=== PATIENT | female | born 1955 | race Caucasian/White ===

== ENCOUNTER 2017-05-21 01:30 | Observation (INO) | payer OTHER ==
--- NOTE | 2017-05-21 01:32 | PDOC ---
History of Present Illness - General Chief Complaint: Pain, Acute Stated Complaint: ABDOMINAL PAIN Time Seen by Provider: 05/21/17 01:32 - History of Present Illness Initial Comments: 05/21/17 02:07 This 62-year-old woman with a history of breast carcinoma/TRAM flap reconstruction/ SBO/ anxiety/hyperlipidemia presents with a few hour history of generalized abdominal pain and nausea. Patient had dinner at approximately 8 PM (high-fiber foods including lentils) tonight. At approximately 11:30 PM, she began to experience generalized abdominal pain along with nausea and tenesmus. Patient was unable to have bowel movement but has been passing gas ( most recently half hour prior to presentation). There has been no vomiting. Patient states that she may have had brief episode of chest discomfort at the start of symptoms but no further chest pain/shortness of breath. Patient is currently training for a marathon and ran her usual course during the day today. She thinks she may not have hydrated herself adequately afterwards. 4 years ago patient was admitted here with similar symptoms as tonight: CT at that time showed small bowel obstruction. SBO resolved spontaneously after admission. There have been no subsequent episodes of persistent abdominal pain/ nausea/vomiting No history of hypertension/DM/family history of coronary artery disease No smoking for the last 35 years Past History - Past Medical History Allergies/Adverse Reactions: Allergies Allergy/AdvReac Type Severity Reaction Status Date / Time No Known Allergies Allergy Verified 03/06/13 20:21 Home Medications: Ambulatory Orders Clonazepam [KlonoPIN -] 1 mg PO HS 03/07/13 Lovastatin 20 mg PO DAILY 03/07/13 Venlafaxine HCl [Effexor -] 75 mg PO DAILY 03/07/13 Hypercholesterolemia: Yes - Psycho/Social/Smoking Cessation Hx Anxiety: No Suicidal Ideation: No Smoking Status: No Smoking History: Never smoked Number of Cigarettes Smoked Daily: 0 Hx Alcohol Use: No Drug/Substance Use Hx: No Substance Use Type: Alcohol Hx Substance Use Treatment: No Review of Systems - Review of Systems Able to Perform ROS?: Yes Comments:: 12 point review of systems is negative except for what is noted in the history of present illness *Physical Exam - Physical Exam Comments: GENERAL: Adult female, in moderate distress secondary to nausea and abdominal pain HEAD: Normal with no signs of trauma. EYES: PERRLA, EOMI, sclera anicteric, conjunctiva clear. ENT: Ears normal, nares patent, oropharynx clear without exudates. Dry mucous membranes. NECK: Normal range of motion, supple without lymphadenopathy, JVD, or masses. LUNGS: Breath sounds equal, clear to auscultation bilaterally. No wheezes, and no crackles. HEART:Regular rate and rhythm, normal S1 and S2 without murmur, rub or gallop. ABDOMEN:. Moderately distended, hyperactive bowel sounds, generalized mild tenderness without peritoneal signs No organomegaly EXTREMITIES: Normal range of motion, no edema. No clubbing or cyanosis. No erythema, or tenderness. NEUROLOGICAL: Cranial nerves II through XII grossly intact. Normal speech. No focal neurological deficits. MUSCULOSKELETAL: Back non-tender to palpation, no CVA tenderness SKIN: Warm, Dry, normal turgor, no rashes or lesions noted. ED Treatment Course - LABORATORY CBC & Chemistry Diagram: 05/22/17 06:00 05/22/17 06:00 Medical Decision Making - Medical Decision Making This 62-year-old woman with a history of breast carcinoma/tram flap and one previous history of SBO presents with a few hour history of abdominal distention /pain/nausea. Of note, patient had high fiber diet today and exercised extensively in hot/humid conditions. Exam as noted. Patient given IV normal saline along with 4 mg Zofran IV. Toradol 30 mg IV given for analgesia. CBC/chemistry profile/lipase/lactic acid sent Noncontrast abdominal/pelvic CT performed to evaluate for evidence of small bowel obstruction Patient continued to have pain and asked for additional pain medication of Toradol IV. Patient given 2 mg of morphine IV After dose of morphine IV, patient became comfortable and no further nausea occurred. 05/21/17 06:14 Preliminary interpretation of abdominal/pelvic CT by Imaging commercial subcontractor: Small bowel dilatation in the left middle and lower abdomen suggesting obstruction . No abscess/free air/free fluid seen. Case discussed with radiologist (Dr. Diehl ); results consistent with early or partial small bowel obstruction Results discussed with the patient. She agrees to plan of admission for observation and treatment of her early small bowel obstruction. 05/21/17 06:55 12-lead electrocardiogram shows normal sinus rhythm at 87 bpm; intervals, wave forms and axis are all normal. No evidence of acute ST or T-wave abnormalities Patient to be admitted to [facility] hospitalist service for evaluation and observation of early small bowel obstruction. *DC/Admit/Observation/Transfer Diagnosis at time of Disposition: Small bowel obstruction - Discharge Dispostion Disposition: HOME Condition at time of disposition: Stable Admit: Yes - Referrals
[2017-05-21 01:40] VITALS: BMI 22.6
[2017-05-21] MEDS ORDERED: ONDANSETRON 4 MG/2 ML VIAL IVPUSH ONE (02:06)
[2017-05-21] MEDS ORDERED: SODIUM CHLORIDE 1,000 ML IV STA ×2 (02:06→05:05)
[2017-05-21] MEDS ORDERED: ONDANSETRON 4 MG/2 ML VIAL ONE (02:14)
[2017-05-21] MEDS ORDERED: KETOROLAC TROMETHAMINE 30 MG/1 ML VIAL ONE ×2 (02:16→14:15)
[2017-05-21] MEDS ORDERED: KETOROLAC TROMETHAMINE 30 MG/1 ML VIAL IVPUSH ONE ×3 (02:16→16:03)
[2017-05-21] MEDS ORDERED: morphine CARPU-JECT 2 MG/1 ML DISP.SYRIN IVPUSH ONE (02:24)
[2017-05-21] MEDS ORDERED: morphine CARPU-JECT 2 MG/1 ML DISP.SYRIN ONE (02:26)
[2017-05-21 02:38] LABS: BASOPHIL 1.2 % (0-2.0); EOSINOPHIL 1.5 % (0-4.5); MCH 31.6 pg (25.7-33.7); MCHC 34.4 g/dl (32.0-36.0); MEAN PLT VOLUME 10.5 fl (7.5-11.1); PLATELET COUNT 208 K/MM3 (134-434)
[2017-05-21 03:09] LABS: ALBUMIN 4.2 g/dl (3.4-5.0); ALK PHOS 34 U/L (45-117); ANION GAP 6 (8-16); BILIRUBIN,TOTAL 0.4 mg/dL (0.2-1.0); CALCIUM 9.4 mg/dL (8.5-10.1); CO2 32 mmol/L (21-32); CREATININE 0.8 mg/dL (0.55-1.02); GLUCOSE,RANDOM 105 mg/dL (74-106); SGOT/AST 23 U/L (15-37); SGPT/ALT 31 U/L (12-78); TOT PROT 7.4 g/dl (6.4-8.2)
[2017-05-21 03:10] LABS: CPK 78 IU/L (26-192); TROPONIN I < 0.02 ng/ml (0.00-0.05)
[2017-05-21] MEDS ORDERED: LORazepam 2 MG/ML SDV VIAL IVPUSH ONE (11:47)
--- NOTE | 2017-05-21 11:50 | HP ---
CHIEF COMPLAINT: diffuse abdominal pain PCP: Skip HISTORY OF PRESENT ILLNESS: This is a 62yo woman with PMH anxiety, breast CA s/ p transflap repair in 2004, hld and partial SBO in 2013 who presents today with sudden onset diffuse abdominal pain starting at approximately 2330 on 05/20/17. She states she was in her [place] including long run yesterday afternoon and she ate a large salad with lentils and cod for dinner. ER course was notable for: (1) CTAP- Dilated loops of small bowel Recent Travel: denies PAST MEDICAL HISTORY: see HPI PAST SURGICAL HISTORY: see HPI Social History: Smoking: denies Alcohol: denies Drugs: THC Allergies No Known Allergies Allergy (Verified 03/06/13 20:21) HOME MEDICATIONS: Home Medications Medication Instructions Recorded Clonazepam [KlonoPIN] 1 mg PO HS 03/07/13 Lovastatin 20 mg PO DAILY 03/07/13 Venlafaxine HCl [Effexor] 75 mg PO DAILY 03/07/13 REVIEW OF SYSTEMS CONSTITUTIONAL: Absent: fever, chills, diaphoresis, generalized weakness, malaise, loss of appetite, weight change HEENT: Absent: rhinorrhea, nasal congestion, throat pain, throat swelling, difficulty swallowing, mouth swelling, ear pain, eye pain, visual changes CARDIOVASCULAR: Absent: chest pain, syncope, palpitations, irregular heart rate, lightheadedness , peripheral edema RESPIRATORY: Absent: cough, shortness of breath, dyspnea with exertion, orthopnea, wheezing, stridor, hemoptysis GASTROINTESTINAL: Present- abdominal pain, abdominal distension Absent: nausea, vomiting, diarrhea, constipation, melena, hematochezia GENITOURINARY: Absent: dysuria, frequency, urgency, hesitancy, hematuria, flank pain, genital pain MUSCULOSKELETAL: Absent: myalgia, arthralgia, joint swelling, back pain, neck pain SKIN: Absent: rash, itching, pallor HEMATOLOGIC/IMMUNOLOGIC: Absent: easy bleeding, easy bruising, lymphadenopathy, frequent infections ENDOCRINE: Absent: unexplained weight gain, unexplained weight loss, heat intolerance, cold intolerance NEUROLOGIC: Absent: headache, focal weakness or paresthesias, dizziness, unsteady gait, seizure, mental status changes, bladder or bowel incontinence PSYCHIATRIC: Absent: anxiety, depression, suicidal or homicidal ideation, hallucinations. PHYSICAL EXAMINATION Vital Signs - 24 hr 08/19/17 08:24 Temperature 98.6 F Pulse Rate 86 Respiratory 16 Rate Blood Pressure 140/86 O2 Sat by Pulse 100 Oximetry (%) GENERAL: Awake, alert, and fully oriented, in no acute distress. HEAD: Normal with no signs of trauma. EYES: Pupils equal, round and reactive to light, EOM intact, sclera anicteric, conjunctiva clear. No lid lag. EARS, NOSE, THROAT: Ears normal, nares patent, oropharynx clear without exudates. Moist mucous membranes. NECK: Normal range of motion, supple without lymphadenopathy, JVD, or masses. LUNGS: Breath sounds equal, clear to auscultation bilaterally. No wheezes, and no crackles. No accessory muscle use. HEART: Regular rate and rhythm, normal S1 and S2 without murmur, rub or gallop. ABDOMEN: Soft with normoactive bowel sounds. Dullness to percussion in RUQ. TTP in lower abdomen. Mildly distended in lower abdomen, no guarding, no rebound, no masses. No hepatomegaly or splenomegaly. Passing flatus at this time. MUSCULOSKELETAL: Normal range of motion at all joints. No bony deformities or tenderness. No CVA tenderness. UPPER EXTREMITIES: 2+ pulses, warm, well-perfused. No cyanosis. No clubbing. No peripheral edema. LOWER EXTREMITIES: 2+ pulses, warm, well-perfused. No calf tenderness. No peripheral edema. NEUROLOGICAL: Cranial nerves II-XII intact. Normal speech. Normal gait. PSYCHIATRIC: Anxious. SKIN: Warm, dry, normal turgor, no rashes or lesions noted, normal capillary refill. ASSESSMENT/PLAN: A: 62yo woman with PMH breast CA (2003) with b/l transflap mastectomy, hld and partial SBO (2012) with partial SBO now. P: 1. SBO - serial abdominal exams - NS@125 - trend electrolytes - will avoid opiates for pain management - Toradol 30mg IVP prn - re-evaluation in AM - trend CMP - low threshold for surgery evaluation 2. Anxiety - ativan 2mg prn 3. F/E/N - NPO - NS@125 - replete prn 4. PPX - sqh - OOB Dispo- requires observation for her acute medical condition Visit type - Emergency Visit Emergency Visit: Yes ED Registration Date: 05/21/17 Care time: The patient presented to the Emergency Department on the above date and was hospitalized for further evaluation of their emergent condition. - New Patient This patient is new to me today: Yes Date on this admission: 05/21/17 - Critical Care Critical Care patient: No
[2017-05-21] MEDS: SODIUM CHLORIDE 1,000 ML IV SCH (12:16)
[2017-05-21] MEDS ORDERED: LORazepam 2 MG/ML SDV VIAL ONE (14:15)
[2017-05-21] MEDS ORDERED: LORazepam 2 MG/ML SDV VIAL IVPUSH PRN (16:06)
[2017-05-22 08:39] LABS: BASOPHIL 0.7 % (0-2.0); EOSINOPHIL 3.4 % (0-4.5); MCH 31.3 pg (25.7-33.7); MCHC 34.5 g/dl (32.0-36.0); MEAN CELL VOLUME 90.7 fl (80-96); MEAN PLT VOLUME 10.6 fl (7.5-11.1); NEUTROPHILS 63.8 % (42.8-82.8); PLATELET COUNT 145 K/MM3 (134-434); RDW 12.5 % (11.6-15.6); WHITE BLOOD COUNT 6.1 K/mm3 (4.0-10.8)
[2017-05-22 08:56] LABS: ALBUMIN 3.3 g/dl (3.5-5.0); ALK PHOS 27 U/L (32-92); ANION GAP 4 (8-16); BILIRUBIN,TOTAL 1.1 mg/dl (0.2-1.0); CO2 25 mmol/L (22-28); GLUCOSE,RANDOM 93 mg/dl (74-106); SGOT/AST 21 U/L (10-42); SGPT/ALT 17 U/L (10-40); TOT PROT 5.3 g/dl (6.4-8.3)
[2017-05-22 09:14] LABS: CREATININE 0.5 mg/dl (0.6-1.3)
[2017-05-22] MEDS ORDERED: POLYETHYLENE GLYCOL 3350 119 GM BTL PO ONE (09:30)
[2017-05-22] MEDS ORDERED: ATORVASTATIN CA 10 MG TABLET (FP) PO SCH (10:00)
[2017-05-22] MEDS ORDERED: VENLAFAXINE HCL 75 MG TABLET PO SCH (10:00)
--- NOTE | 2017-05-22 11:38 | DS ---
Physical Exam: SUBJECTIVE: Patient seen and examined at bedside. Feels better. Small firm BM this AM. OBJECTIVE: Vital Signs Period Temp Pulse Resp BP Sys/Escudero Pulse Ox Last 24 Hr 98.5 F-98.9 F 64-89 18-18 98-119/54-80 98-100 PHYSICAL EXAM GENERAL: Awake, alert, and fully oriented, in no acute distress. LUNGS: Breath sounds equal, clear to auscultation bilaterally. No wheezes, and no crackles. No accessory muscle use. HEART: Regular rate and rhythm, normal S1 and S2 without murmur, rub or gallop. ABDOMEN: Soft non-tender, non-distended with normoactive bowel sounds. No guarding, no rebound, no masses. No hepatomegaly or splenomegaly. Passing flatus and stool at this time. NEUROLOGICAL: Cranial nerves II-XII intact. Normal speech. Normal gait. PSYCHIATRIC: Calm and cooperative. SKIN: Warm, dry, normal turgor, no rashes or lesions noted, normal capillary refill. LABS Laboratory Results - last 24 hr 05/22/17 05/22/17 06:00 06:00 WBC 6.1 RBC 3.81 Hgb 11.9 Hct 34.5 MCV 90.7 MCH 31.3 MCHC 34.5 RDW 12.5 Plt Count 145 MPV 10.6 Neutrophils % 63.8 Lymphocytes % 24.3 D Monocytes % 7.8 Eosinophils % 3.4 D Basophils % 0.7 Sodium 139 Potassium 3.8 Chloride 110 H Carbon Dioxide 25 Anion Gap 4 L BUN 8 Creatinine 0.5 L Creat Clearance w eGFR > 60 Random Glucose 93 D Calcium 8.0 L Total Bilirubin 1.1 H D AST 21 ALT 17 D Alkaline Phosphatase 27 L Total Protein 5.3 L Albumin 3.3 L HOSPITAL COURSE: Date of Admission:05/21/17 Date of Discharge: 05/22/17 Minutes to complete discharge: 30 Discharge Summary Reason For Visit: SMALL BOWEL OBSTRUCTION Current Active Problems Small bowel obstruction (Acute) Hospital Course: This is a 62yo woman with PMH of breast carcinoma/TRAM flap reconstruction/ SBO / anxiety/hyperlipidemia who presented with a few hour history of generalized abdominal pain and nausea. Patient had dinner at approximately 8 PM (high- fiber foods including lentils) 05/20. At approximately 11:30 PM, she began to experience generalized abdominal pain along with nausea and tenesmus. Patient was unable to have bowel movement but has been passing gas (most recently half hour prior to presentation). There has been no vomiting. Patient is currently training for a marathon and ran her usual course during the day of admission. She thinks she may not have hydrated herself adequately afterwards. 4 years ago patient was admitted here with similar symptoms: CT at that time showed small bowel obstruction. SBO resolved spontaneously after admission. There have been no subsequent episodes of persistent abdominal pain/nausea/ vomiting 1. SBO -CTAP showed possible partial SBO -IVF and bowel rest provided -repeat imaging showed resolution of obstruction with large stool in sigmoid colon -BM on day of discharge after Miralax -abdomen SNTND 2. Anxiety -controlled with Ativan 2mg Condition: Stable - Instructions Diet, Activity, Other Instructions: Drink plenty of fluids. Avoid lentils in the future. Eat a well balanced diet high in fiber. Follow up with your front desk coordinator within 2 weeks. Return to ER for worsening pain, rectal bleeding, vomiting or any other concerns. Referrals: STAFF,NOT ON [Primary Care Provider] - Disposition: HOME - Home Medications Comprehensive Discharge Medication List: Ambulatory Orders Clonazepam [KlonoPIN -] 1 mg PO HS 03/07/13 Lovastatin 20 mg PO DAILY 03/07/13 Venlafaxine HCl [Effexor -] 75 mg PO DAILY 03/07/13 Problem List - Problems (1) Small bowel obstruction Code(s): K56.69 - OTHER INTESTINAL OBSTRUCTION (2) Anxiety Code(s): F41.9 - ANXIETY DISORDER, UNSPECIFIED This patient is new to me today: No Emergency Visit: Yes ED Registration Date: 05/21/17 Care time: The patient presented to the Emergency Department on the above date and was hospitalized for further evaluation of their emergent condition. Critical Care patient: No - Discharge Referral Referred to [facility] No
[2017-05-22] MEDS: SODIUM CHLORIDE 1,000 ML IV SCH (12:08)
[2017-05-22 12:12] VITALS: BP 105/60; PULSE 70; TEMP 98.1
--- NOTE | 2017-05-24 14:16 | EKG ---
Test Reason : Blood Pressure : / mmHG Vent. Rate : 087 BPM Atrial Rate : 087 BPM P-R Int : 148 ms QRS Dur : 072 ms QT Int : 386 ms P-R-T Axes : 057 079 059 degrees QTc Int : 464 ms NORMAL SINUS RHYTHM LOW VOLTAGE QRS BORDERLINE ECG NO PREVIOUS ECGS AVAILABLE REPEAT EKG IF CLINICALLY INDICATED Confirmed by JAIME VALLEJO MD ([id number]) on 05/24/2017 2:15:37 PM Referred By: MD SANDOVAL Confirmed By:JAIME VALLEJO MD
== END 2017-05-22 12:50 | disposition home or self-care (01) ==
LOC: SUPCPDRO 01:30 → FER 01:30 → FM/S 08:00 → INTOOBSV 08:00 → FM/S 20:13
PROVIDERS: ADMIT Internal Medicine; ATTEND Nurse Practitioner Family
PROC: 3E0333Z Introduction of Anti-inflammatory into Peripheral Vein, Percutaneous Approach (ICD-10-PCS; principal; 2017-05-21)
PROC: 3E033GC Introduction of Other Therapeutic Substance into Peripheral Vein, Percutaneous Approach (ICD-10-PCS; 2017-05-21)
PROC: 3E033NZ Introduction of Analgesics, Hypnotics, Sedatives into Peripheral Vein, Percutaneous Approach (ICD-10-PCS; 2017-05-21)
PROC: 3E0337Z Introduction of Electrolytic and Water Balance Substance into Peripheral Vein, Percutaneous Approach (ICD-10-PCS; 2017-05-21)
DX: K56.69 Other intestinal obstruction (principal); F41.9 Anxiety disorder, unspecified; E78.5 Hyperlipidemia, unspecified; Z85.3 Personal history of malignant neoplasm of breast
CPT/HCPCS: 36415; 71010-TC; 74020-TC; 74176-TC; 80053; 83605; 83690; 84484; 85025; 93005; 99284-25; G0378

== ENCOUNTER 2019-03-26 20:12 | Emergency (ER) | payer OTHER ==
[2019-03-26 20:41] VITALS: BP 160/87; PULSE 66; TEMP 97.9; BMI 26.5
--- NOTE | 2019-03-26 21:26 | PDOC ---
Documentation entered by Rocio Hui SCRIBE, acting as scribe for Deyvi Candelario MD. Deyvi Candelario MD: This documentation has been prepared by the Korina garcia Brenda, SCRIBE, under my direction and personally reviewed by me in its entirety. I confirm that the documentation accurately reflects all work , treatment, procedures, and medical decision making performed by me. History of Present Illness - General Chief Complaint: Injury Stated Complaint: SLIP AND FALL Time Seen by Provider: 03/26/19 20:21 History Source: Patient Exam Limitations: No Limitations - History of Present Illness Initial Comments: 03/26/19 20:51 The patient is a 64 year old female, with a significant PMH of breast carcinoma , TRAM flap reconstruction, SBO, anxiety and hyperlipidemia who presents to the emergency department s/p fall. The patient reports being at [employer], at which time she tripped and fell on an unknown area, where she hit her head. The Patient notes having a bloody nose since the incident. She also reports feeling pain on bruise on her forehead and slight head pressure. The patient denies LOC. Denies chest pain, shortness of breath, headache and dizziness.Denies fever, chills, nausea, vomiting, diarrhea and constipation. Allergies: As per nursing notes Past medical history: As noted in HPI. Past surgical history: no significant history Social history: Pt lives with family. Family History: no pertinent history Medications: As reviewed General: No fevers or chills, no weakness, no weight loss HEENT: +Bloody nose. + Abrasion on forehead. + Abrasion on nose bridge. No change in vision. No sore throat,. No ear pain CardioVascular: No chest pain or shortness of breath Respiratory:No cough, or wheezing. Gastrointestinal: no nausea, vomiting, diarrhea or constipation, No rectal bleeding Genitourinary: No dysuria, hematuria, or frequency Musculoskeletal: No joint or muscle pain or swelling Neurologic: No headache, vertigo, dizziness or loss of consciousness Psychiatric: nor depression Skin: No rashes or easy bruising Endocrine: no increased thirst or abnormal weight change Allergic: no skin or latex allergy All other systems reviewed and normal GENERAL: The patient is awake, alert, and fully oriented, in no acute distress. HEAD: Normal with no signs of trauma. EYES: Pupils equal, round and reactive to light, extraocular movements intact, sclera anicteric, conjunctiva clear. NOSE: +Abrasion over bridge of nose +Swelling and questionable deformity to the nose . No septal hematoma. No active bleeding from the nose. EXTREMITIES: Normal range of motion, no edema. NEUROLOGICAL: No tenderness to palpation on cervical spine. Normal speech, normal gait. PSYCH: Normal mood, normal affect. SKIN: Warm, Dry, normal turgor, no rashes or lesions noted. 03/26/19 21:25 Assessment and plan: This is a 64-year-old female who comes in status post slip and fall at [employer]. Patient hit her nose but otherwise denies any injuries. Patient nose bled profusely as per patient but there was no bleeding here in the ED. Nasal bone x-ray small minimally displaced fracture of the distal portion of the nasal bone Head CT 03/26/19 21:54 Negative for any acute pathology Patient discharged home with her will follow-up with her primary care doctor Past History - Past Medical History Allergies/Adverse Reactions: Allergies Allergy/AdvReac Type Severity Reaction Status Date / Time No Known Allergies Allergy Verified 03/06/13 20:21 Home Medications: Ambulatory Orders Lovastatin 20 mg PO DAILY 03/07/13 Venlafaxine HCl [Effexor -] 75 mg PO DAILY 03/07/13 clonazePAM [KlonoPIN -] 1 mg PO HS 03/07/13 Cancer: Yes GI Disorders: Yes (SBO) Hypercholesterolemia: Yes Psychiatric Problems: Yes (ANXIETY) - Surgical History Abdominal Surgery: Yes - Suicide/Smoking/Psychosocial Hx Smoking Status: No Smoking History: Never smoked Have you smoked in the past 12 months: No Number of Cigarettes Smoked Daily: 0 Hx Alcohol Use: No Drug/Substance Use Hx: No Substance Use Type: Alcohol Hx Substance Use Treatment: No *Physical Exam - Vital Signs Last Vital Signs Temp Pulse Resp BP Pulse Ox 97.9 F 66 16 160/87 100 03/26/19 20:13 03/26/19 20:13 03/26/19 20:13 03/26/19 20:13 03/26/19 20:13 ED Treatment Course - RADIOLOGY Radiology Studies Ordered: Category Date Time Status HEAD CT WITHOUT CONTRAST [CT] Stat CT Scan 03/26/19 20:28 Taken NASAL BONES [RAD] Stat Radiology 03/26/19 20:28 Taken *DC/Admit/Observation/Transfer Diagnosis at time of Disposition: Nasal bone fracture, Nasal abrasion - Discharge Dispostion Disposition: HOME Condition at time of disposition: Stable Decision to Admit order: No - Referrals - Patient Instructions Additional Instructions: For the pain take Tylenol 1000 mg as often this 3-4 times a day if needed. Someone to check on you once tonight during the night. You should be arousable to you normal level of arousability for that time of the night. If you have been vomiting, had a seizure, or you are unable to be aroused or there is a change in your mental status call 911 go back to the nearest emergency department. Followup with your primary care doctor Return to the emergency department immediately with ANY new, persistent or worsening symptoms. Continue any medications as previously prescribed by your physician. You should follow up with your primary doctor as soon as possible regarding today's emergency department visit. . Please make sure your doctor reviews the results of your emergency evaluation. Thank you for coming to the Emergency Department today for your care. It was a pleasure to see you today. Please note that your evaluation is INCOMPLETE until you follow-up with your doctor. - Post Discharge Activity
== END 2019-03-26 23:14 | disposition home or self-care (01) ==
LOC: FER 20:12
DX: S02.2XXA Fracture of nasal bones, initial encounter for closed fracture (principal); S06.9X0A Unspecified intracranial injury without loss of consciousness, initial encounter; W18.39XA Other fall on same level, initial encounter; Y93.89 Activity, other specified; Y92.512 Supermarket, store or market as the place of occurrence of the external cause; S00.31XA Abrasion of nose, initial encounter; K56.609 Unspecified intestinal obstruction, unspecified as to partial versus complete obstruction; E78.00 Pure hypercholesterolemia, unspecified; F41.9 Anxiety disorder, unspecified; Z85.3 Personal history of malignant neoplasm of breast
CPT/HCPCS: 70160-TC-FY; 70450-TC; 99281-25

== ENCOUNTER 2021-09-27 13:15 | Emergency (ER) | payer OTHER ==
[2021-09-27 13:53] VITALS: BP 147/86; PULSE 93; TEMP 98.9; BMI 23.0
[2021-09-29 00:07] LABS: SARS-CoV-2 NAA Not Detected (Not Detected)
== END 2021-09-27 14:04 | disposition home or self-care (01) ==
LOC: FER 13:15
DX: B34.9 Viral infection, unspecified (principal)
CPT/HCPCS: 99283-25; C9803; U0003; U0005

== ENCOUNTER 2022-07-20 20:25 | Emergency (ER) | payer OTHER ==
[2022-07-20 20:49] VITALS: BP 175/95; PULSE 74; RESP 16; TEMP 98.8; BMI 23.6
== END 2022-07-20 22:16 | disposition home or self-care (01) ==
LOC: FER 20:25
DX: S00.03XA Contusion of scalp, initial encounter (principal); W01.0XXA Fall on same level from slipping, tripping and stumbling without subsequent striking against object, initial encounter
CPT/HCPCS: 70450-TC; 99284-25

== ENCOUNTER 2022-10-06 10:33 | Day surgery (SDC) | payer OTHER ==
[2022-09-28 09:56] VITALS: BMI 23.0
[2022-10-06] MEDS ORDERED: NEO/POLYMYX B SULF/DEXAMETH OPHTHALMIC 5ML BOTTLE ONE (11:26)
[2022-10-06] MEDS ORDERED: BSS (NA/CA/MG/K) BALANCED SALT SOLUTION OPHTH SOLN 15 ML BOTTLE ONE (11:26)
[2022-10-06] MEDS ORDERED: TRYPAN BLUE 0.5 ML DISP.SYRIN ONE (11:26)
[2022-10-06] MEDS ORDERED: CARBACHOL 0.01% INTRA-OCULAR 1.5 ML VIAL ONE (11:26)
[2022-10-06] MEDS ORDERED: PHENYLEPHRINE/KETOROLAC 4 ML VIAL IO ONE (11:26)
[2022-10-06] MEDS: PHENYLEPHRINE 2.5% OPHTH SOLN 15 ML BOTTLE ONE ×3 (11:45→11:55)
[2022-10-06] MEDS: CYCLOPENTOLATE 2% OPHTH SOLN 2 ML BOTTLE ONE ×3 (11:45→11:55)
[2022-10-06] MEDS: TROPICAMIDE 1% OPHTH SOLN 15 ML BOTTLE ONE ×3 (11:45→11:55)
[2022-10-06] MEDS: CIPROFLOXACIN 0.3% EYE DROPS 5 ML BOTTLE ONE ×3 (11:45→11:55)
[2022-10-06 11:50] VITALS: RESP 16
[2022-10-06] MEDS ORDERED: MIDAZOLAM HCL 2 MG/2 ML SINGLE DOSE VIAL ONE ×2 (12:51→13:02)
[2022-10-06 14:14] VITALS: TEMP 97.9
[2022-10-06 14:22] VITALS: BP 93/54; PULSE 76
== END 2022-10-06 14:15 | disposition home or self-care (01) ==
LOC: FASU 10:33
PROVIDERS: ATTEND Ophthalmology
PROC: 08RJ3JZ Replacement of Right Lens with Synthetic Substitute, Percutaneous Approach (ICD-10-PCS; principal; 2022-10-06 12:57)
DX: H26.8 Other specified cataract (principal)
CPT/HCPCS: 66984; V2632; J1097

== ENCOUNTER 2022-12-15 06:40 | Inpatient (IN) | payer OTHER ==
[2022-12-15] MEDS ORDERED: ONDANSETRON 4 MG/2 ML VIAL IVPUSH ONE (07:33)
[2022-12-15] MEDS ORDERED: SODIUM CHLORIDE 1,000 ML IV STA (07:33)
[2022-12-15] MEDS ORDERED: morphine CARPU-JECT 4 MG/1 ML DISP.SYRIN IVPUSH ONE ×2 (07:33→11:26)
[2022-12-15] MEDS ORDERED: morphine SULFATE 4 MG/ML VIAL ONE ×3 (07:34→15:04)
[2022-12-15] MEDS ORDERED: ONDANSETRON 4 MG/2 ML VIAL ONE (07:35)
[2022-12-15 07:59] LABS: INR 0.97 (0.83-1.09); PROTHROMBIN TIME (PATIENT) 11.1 SEC (9.7-13.0)
[2022-12-15 08:06] LABS: ALBUMIN 4.5 g/dl (3.4-5.0); BILIRUBIN,TOTAL 0.7 mg/dl (0.2-1); CALCIUM 10.1 mg/dl (8.5-10); CREATININE 0.8 mg/dl (0.55-1.3); TOT PROT 7.5 g/dl (6.4-8.2)
[2022-12-15 08:51] LABS: AMORP PHOS 2+ /hpf (NONE SEEN); EPITHELIAL CELLS FEW /hpf
[2022-12-15 08:57] LABS: BASO % 0.4 % (0-2.0); EOS % 0.1 % (0-4.5); HEMATOCRIT 42.3 % (32.4-45.2); HEMOGLOBIN 14.3 GM/dL (10.7-15.3); MCHC 33.8 g/dl (32.0-36.0); MEAN CELL VOLUME 91.7 fl (80-96); MEAN PLT VOLUME 10.7 fl (7.5-11.1); MONO % 4.9 % (3.8-10.2); NEUT % 83.6 % (42.8-82.8); PLATELET COUNT 203 10^3/uL (134-434); RBC 4.62 M/mm3 (3.60-5.2); RDW 13.5 % (11.6-15.6); WHITE BLOOD COUNT 10.5 K/mm3 (4.0-10.0)
[2022-12-15] MEDS ORDERED: LIDOCAINE VISCOUS 2% ORAL/TOP 15 ML UNIT-DOSE CUP MM ONE (13:33)
[2022-12-15] MEDS ORDERED: diazePAM CARPU-JECT 10 MG/2 ML DISP.SYRIN ONE (13:41)
[2022-12-15] MEDS ORDERED: diazePAM CARPU-JECT 10 MG/2 ML DISP.SYRIN IVPUSH ONE (13:44)
[2022-12-15] MEDS ORDERED: morphine CARPU-JECT 2 MG/1 ML DISP.SYRIN IVPUSH ONE (14:38)
[2022-12-15] MEDS ORDERED: LACTATED RINGERS SOLUTION 1,000 ML/1,000 ML INFUS.BAG IV SCH (18:15)
[2022-12-15 18:27] VITALS: BMI 23.9
[2022-12-15] MEDS: ACETAMINOPHEN 1000 MG/100 ML BAG IVPB PRN (18:53)
[2022-12-16] MEDS: ACETAMINOPHEN 1000 MG/100 ML BAG IVPB PRN ×3 (00:53→16:42)
[2022-12-16 11:14] LABS: ALBUMIN 3.5 g/dl (3.4-5.0); BILIRUBIN,TOTAL 0.6 mg/dl (0.2-1); CALCIUM 8.6 mg/dl (8.5-10); CREATININE 0.6 mg/dl (0.55-1.3); TOT PROT 5.8 g/dl (6.4-8.2)
[2022-12-16 14:25] LABS: BASO % 0.6 % (0-2.0); EOS % 1.8 % (0-4.5); HEMATOCRIT 36.3 % (32.4-45.2); HEMOGLOBIN 12.2 GM/dL (10.7-15.3); LYMPH % 23.4 % (8-40); MCH 30.2 pg (25.7-33.7); MCHC 33.5 g/dl (32.0-36.0); MEAN CELL VOLUME 90.2 fl (80-96); MEAN PLT VOLUME 10.5 fl (7.5-11.1); MONO % 10.9 % (3.8-10.2); NEUT % 63.3 % (42.8-82.8); PLATELET COUNT 157 10^3/uL (134-434); RBC 4.03 M/mm3 (3.60-5.2); WHITE BLOOD COUNT 7.5 K/mm3 (4.0-10.0)
[2022-12-17 02:20] VITALS: RESP 18
[2022-12-17] MEDS ORDERED: clonazePAM 0.5 MG TABLET PO SCH (07:15)
[2022-12-17] MEDS ORDERED: DOCUSATE NA 100 MG/10 ML UNIT-DOSE CUPS PO SCH (08:00)
[2022-12-17] MEDS: ENOXAPARIN NA (PORCINE) 40 MG/0.4 ML DISP.SYRIN SQ SCH ×2 (09:51→09:55)
[2022-12-17] MEDS ORDERED: VENLAFAXINE HCL 75 MG PO SCH (10:00)
[2022-12-17] MEDS ORDERED: LOVASTATIN 20 MG PO SCH (10:00)
[2022-12-17] MEDS ORDERED: clonazePAM 0.5 MG TABLET PO PRN (10:52)
[2022-12-17] MEDS ORDERED: VENLAFAXINE HCL 75 MG E.R. CAPSULES PO SCH (11:00)
[2022-12-17 12:53] VITALS: BP 133/71; PULSE 79; TEMP 98.6
[2022-12-17] MEDS ORDERED: MELATONIN 5 MG TABLETS PO SCH (22:00)
[2022-12-18] MEDS ORDERED: VENLAFAXINE HCL 75 MG PO SCH (10:00)
== END 2022-12-17 15:25 | disposition home or self-care (01) | DRG 389 ==
LOC: FER 06:40 → FM/S 14:54
DX: K56.609 Unspecified intestinal obstruction, unspecified as to partial versus complete obstruction (principal); N39.0 Urinary tract infection, site not specified; E78.5 Hyperlipidemia, unspecified; G47.00 Insomnia, unspecified; F41.8 Other specified anxiety disorders
CPT/HCPCS: 0241U-QW; 36415; 71045-TC-FY; 74019-TC-FY; 74177-TC; 80053; 81003; 81015; 83690; 85025; 85610; 86850; 86900; 86901; 87086; 93005; 99285-25; Q9967

== ENCOUNTER 2023-06-02 21:32 | Inpatient (IN) | payer OTHER ==
[2023-06-02] MEDS ORDERED: SODIUM CHLORIDE 1,000 ML IV ONE (22:09)
[2023-06-02] MEDS ORDERED: morphine CARPU-JECT 4 MG/1 ML DISP.SYRIN IVPUSH ONE (22:10)
[2023-06-02 22:42] LABS: HEMATOCRIT 42.6 % (32.4-45.2); MCH 30.8 pg (25.7-33.7); MCHC 32.7 g/dl (32.0-36.0); MEAN PLT VOLUME 9.3 fl (7.5-11.1); PLATELET COUNT 208.1 10^3/uL (134-434); RBC 4.53 10^6/uL (3.60-5.2); RDW 13.7 % (11.6-15.6); WHITE BLOOD COUNT 10.8 10^3/uL (4.0-10.8)
[2023-06-02] MEDS ORDERED: ACETAMINOPHEN INJECTION 100 ML IVPB ONE (23:02)
[2023-06-02 23:08] LABS: ALBUMIN 4.8 g/dl (3.4-5.0); BLOOD UREA NITROGEN 15.9 mg/dl (7-18); CALCIUM 9.9 mg/dl (8.5-10.1); CREATININE 0.7 mg/dl (0.6-1.3); POTASSIUM 3.7 mmol/L (3.5-5.1); SGOT/AST 19.1 U/L (15-37); TOT PROT 7.3 g/dl (6.4-8.2)
[2023-06-02] MEDS ORDERED: ACETAMINOPHEN 1000 MG/100 ML BAG IVPB ONE (23:15)
[2023-06-03 01:05] LABS: BILIRUBIN,TOTAL 0.9 mg/dL (0.2-1)
[2023-06-03] MEDS ORDERED: SIMETHICONE 80 MG TAB.CHEW (FP) PO STA (01:17)
[2023-06-03] MEDS ORDERED: morphine SULFATE 4 MG/ML VIAL ONE (01:28)
[2023-06-03] MEDS ORDERED: clonazePAM 0.5 MG TABLET PO ONE (02:19)
[2023-06-03] MEDS ORDERED: clonazePAM 0.5 MG TABLET ONE (02:20)
[2023-06-03] MEDS ORDERED: DEXTROSE 5%-0.45% SALINE 1,000 ML IV SCH (03:00)
[2023-06-03 03:15] VITALS: BMI 56.9
[2023-06-03 03:18] VITALS: RESP 18
[2023-06-03 08:35] LABS: INR 1.04 (0.83-1.09); PROTHROMBIN TIME (PATIENT) 12.1 SEC (9.7-13.0)
[2023-06-03 09:41] LABS: BASO % 0.7 % (0-2.0); EOS % 0.9 % (0-4.5); HEMATOCRIT 35.5 % (32.4-45.2); HEMOGLOBIN 11.7 GM/dL (10.7-15.3); LYMPH % 21.4 % (8-40); MCH 30.4 pg (25.7-33.7); MEAN CELL VOLUME 92.2 fl (80-96); MEAN PLT VOLUME 10.3 fl (7.5-11.1); MONO % 9.4 % (3.8-10.2); NEUT % 67.6 % (42.8-82.8); PLATELET COUNT 170 10^3/uL (134-434); RBC 3.85 M/mm3 (3.60-5.2); RDW 13.5 % (11.6-15.6); WHITE BLOOD COUNT 6.2 K/mm3 (4.0-10.0)
[2023-06-03 09:43] LABS: ALBUMIN 3.8 g/dl (3.4-5.0); BLOOD UREA NITROGEN 11.5 mg/dl (7-18); CALCIUM 8.9 mg/dl (8.5-10.1); CREATININE 0.6 mg/dl (0.6-1.3); POTASSIUM 4.3 mmol/L (3.5-5.1); SGOT/AST 14.4 U/L (15-37); SGPT/ALT 12.1 U/L (7-52); TOT PROT 5.8 g/dl (6.4-8.2)
[2023-06-03 11:35] LABS: BILIRUBIN,TOTAL 0.4 mg/dL (0.2-1)
[2023-06-03] MEDS ORDERED: clonazePAM 0.5 MG TABLET PO PRN (15:08)
[2023-06-03] MEDS: VENLAFAXINE HCL 75 MG E.R. CAPSULES PO SCH (16:00)
[2023-06-03] MEDS: ACETAMINOPHEN 325 MG TABLET (FP) PO PRN (18:50)
[2023-06-03] MEDS ORDERED: MELATONIN 5 MG TABLETS PO PRN (22:11)
[2023-06-04] MEDS: ACETAMINOPHEN 325 MG TABLET (FP) PO PRN (00:17)
[2023-06-04 08:55] LABS: ALBUMIN 4.3 g/dl (3.4-5.0); BLOOD UREA NITROGEN 9.3 mg/dl (7-18); CALCIUM 9.2 mg/dl (8.5-10.1); CREATININE 0.6 mg/dl (0.6-1.3); POTASSIUM 4.5 mmol/L (3.5-5.1); SGOT/AST 16.9 U/L (15-37); SGPT/ALT 14.6 U/L (7-52); TOT PROT 6.4 g/dl (6.4-8.2)
[2023-06-04 09:37] VITALS: BP 144/84; PULSE 78; TEMP 98.1
[2023-06-04] MEDS: VENLAFAXINE HCL 75 MG E.R. CAPSULES PO SCH (09:44)
[2023-06-04 10:46] LABS: HEMATOCRIT 38.1 % (32.4-45.2); HEMOGLOBIN 12.8 GM/dL (10.7-15.3); MCHC 33.6 g/dl (32.0-36.0); MEAN CELL VOLUME 92.2 fl (80-96); MEAN PLT VOLUME 10.2 fl (7.5-11.1); PLATELET COUNT 179 10^3/uL (134-434); RBC 4.13 M/mm3 (3.60-5.2); RDW 13.6 % (11.6-15.6); WHITE BLOOD COUNT 4.5 K/mm3 (4.0-10.0)
[2023-06-04 10:48] LABS: BILIRUBIN,TOTAL 0.7 mg/dL (0.2-1)
== END 2023-06-04 12:30 | disposition home or self-care (01) | DRG 390 ==
LOC: FER 21:32 → FM/S 06-03 02:26
PROVIDERS: ADMIT Internal Medicine
DX: K56.609 Unspecified intestinal obstruction, unspecified as to partial versus complete obstruction (principal); E78.5 Hyperlipidemia, unspecified; R10.9 Unspecified abdominal pain; R14.3 Flatulence
CPT/HCPCS: 36415; 71045-TC-FY; 74018-TC-FY; 74019-TC-FY; 74177-TC; 80053; 85025; 85027; 85610; 93005; 99285-25; Q9967

== ENCOUNTER 2023-11-10 03:29 | Inpatient (IN) | payer OTHER ==
[2023-11-10] MEDS ORDERED: ACETAMINOPHEN INJECTION 100 ML IVPB ONE ×2 (03:58→12:25)
[2023-11-10] MEDS ORDERED: FAMOTIDINE 20 MG/50 ML IVPB 20 MG/50 ML MG IVPB ONE (03:58)
[2023-11-10] MEDS: SODIUM CHLORIDE 1,000 ML IV STA (04:13)
[2023-11-10] MEDS: ACETAMINOPHEN 1000 MG/100 ML BAG IVPB ONE (04:13)
[2023-11-10] MEDS: FAMOTIDINE 20 MG/50 ML IVPB 20 MG/50 ML MG IVPB ONE (04:14)
[2023-11-10] MEDS ORDERED: ONDANSETRON 4 MG/2 ML VIAL ONE (04:15)
[2023-11-10] MEDS: ONDANSETRON 4 MG/2 ML VIAL IVPUSH ONE (04:41)
[2023-11-10 05:08] LABS: EPI CELLS 10 /uL (0-25.1); HYALINE CASTS 0 /uL (0-3.1); URINE APPEARANCE TURBID; URINE BACTERIA 11 /uL (0-1359); URINE BILIRUBIN NEGATIVE (NEGATIVE); URINE COLOR YELLOW; URINE GLUCOSE (UA) NEGATIVE (NEGATIVE); URINE KETONE NEGATIVE (NEGATIVE); URINE LEUK ESTERASE TRACE (NEGATIVE); URINE NITRITE NEGATIVE (NEGATIVE); URINE PROTEIN NEGATIVE (NEGATIVE); URINE RBC 27 /uL (0-23.9); URINE UROBILINOGEN 0.2 mg/dL (0.2-1.0); URINE WBC 17 /uL (0-25.8)
[2023-11-10 05:50] LABS: ALBUMIN 4.2 g/dl (3.4-5.0); BILIRUBIN,TOTAL 0.4 mg/dL (0.2-1); BLOOD UREA NITROGEN 18.7 mg/dL (7-18); CALCIUM 10.5 mg/dL (8.5-10.1); CREATININE 0.8 mg/dL (0.55-1.3); POTASSIUM 4.1 mmol/L (3.5-5.1); TOT PROT 7.8 g/dl (6.4-8.2)
[2023-11-10 05:53] LABS: BASO % 0.4 % (0-2.0); EOS % 0.8 % (0-4.5); HEMATOCRIT 43.1 % (32.4-45.2); HEMOGLOBIN 14.4 GM/dL (10.7-15.3); LYMPH % 13.6 % (8-40); MCH 30.8 pg (25.7-33.7); MCHC 33.5 g/dl (32.0-36.0); MEAN CELL VOLUME 91.9 fl (80-96); MEAN PLT VOLUME 9.9 fl (7.5-11.1); MONO % 7.2 % (3.8-10.2); PLATELET COUNT 231 10^3/uL (134-434); RBC 4.69 M/mm3 (3.60-5.2); RDW 13.4 % (11.6-15.6); WHITE BLOOD COUNT 11.9 K/mm3 (4.0-10.0)
[2023-11-10] MEDS: morphine CARPU-JECT 2 MG/1 ML DISP.SYRIN IVPUSH ONE ×2 (06:51→10:10)
[2023-11-10] MEDS: ACETAMINOPHEN 1000 MG/100 ML BAG IVPB PRN (12:31)
[2023-11-10] MEDS: DEXTROSE 5%-0.45% SALINE 1,000 ML IV SCH (13:30)
[2023-11-10] MEDS: VENLAFAXINE HCL 75 MG E.R. CAPSULES PO SCH (14:16)
[2023-11-10 14:53] VITALS: BMI 23.0
[2023-11-10] MEDS: KETOROLAC TROMETHAMINE 30 MG/1 ML VIAL IVPUSH ONE (17:45)
[2023-11-10] MEDS: ONDANSETRON 4 MG/2 ML VIAL IVPUSH PRN (17:45)
[2023-11-11 07:55] LABS: HEMATOCRIT 40.9 % (32.4-45.2); HEMOGLOBIN 13.6 G/dL (10.7-15.3); MCH 30.7 pg (25.7-33.7); MCHC 33.3 g/dl (32.0-36.0); MEAN PLT VOLUME 9.9 fl (7.5-11.1); PLATELET COUNT 205.9 10^3/uL (134-434); RBC 4.45 10^6/uL (3.60-5.2); RDW 14.4 % (11.6-15.6); WHITE BLOOD COUNT 6.3 10^3/uL (4.0-10.8)
[2023-11-11 09:11] LABS: ALBUMIN 4.2 g/dl (3.4-5.0); BILIRUBIN,TOTAL 0.9 mg/dl (0.2-1); CALCIUM 9.6 mg/dl (8.5-10.1); CREATININE 0.7 mg/dl (0.6-1.3); MAGNESIUM 1.9 mg/dL (1.8-2.4); PHOSPHOROUS 4.4 (2.5-4.9); POTASSIUM 4.1 mmol/L (3.5-5.1); TOT PROT 6.3 g/dl (6.4-8.2)
[2023-11-11] MEDS: ENOXAPARIN NA (PORCINE) 40 MG/0.4 ML DISP.SYRIN SQ SCH (09:43)
[2023-11-11] MEDS: ACETAMINOPHEN 1000 MG/100 ML BAG IVPB PRN (19:11)
[2023-11-12 08:44] LABS: HEMATOCRIT 35.2 % (32.4-45.2); MCH 31.6 pg (25.7-33.7); MEAN PLT VOLUME 10.1 fl (7.5-11.1); PLATELET COUNT 154.1 10^3/uL (134-434); RBC 3.79 10^6/uL (3.60-5.2); RDW 13.7 % (11.6-15.6); WHITE BLOOD COUNT 4.7 10^3/uL (4.0-10.8)
[2023-11-12 09:44] LABS: ALBUMIN 3.7 g/dl (3.4-5.0); BILIRUBIN,TOTAL 0.9 mg/dl (0.2-1); CALCIUM 8.4 mg/dl (8.5-10.1); CREATININE 0.5 mg/dl (0.6-1.3); MAGNESIUM 1.7 mg/dL (1.8-2.4); PHOSPHOROUS 2.4 (2.5-4.9); POTASSIUM 3.8 mmol/L (3.5-5.1); TOT PROT 5.5 g/dl (6.4-8.2)
[2023-11-12 09:54] VITALS: RESP 18
[2023-11-12] MEDS: MAGNESIUM SULF 50% (8.12 MEQ/2 ML-1 GM VIAL) IVPB ONE (11:09)
[2023-11-12] MEDS: NAPH,MB-DB/K PH,MBDB POWDER PACKET PO ONE (13:23)
[2023-11-13 07:00] VITALS: BP 114/72; PULSE 78; TEMP 97.8
[2023-11-13 08:27] LABS: HEMATOCRIT 38.1 % (32.4-45.2); HEMOGLOBIN 12.7 G/dL (10.7-15.3); MCH 30.7 pg (25.7-33.7); MCHC 33.2 g/dl (32.0-36.0); MEAN CELL VOLUME 92.2 fl (80-96); MEAN PLT VOLUME 9.8 fl (7.5-11.1); PLATELET COUNT 190.4 10^3/uL (134-434); RBC 4.13 10^6/uL (3.60-5.2); RDW 13.4 % (11.6-15.6); WHITE BLOOD COUNT 4.7 10^3/uL (4.0-10.8)
[2023-11-13 09:38] LABS: ALBUMIN 3.8 g/dl (3.4-5.0); BILIRUBIN,TOTAL 0.7 mg/dl (0.2-1); CREATININE 0.6 mg/dl (0.6-1.3); POTASSIUM 4.1 mmol/L (3.5-5.1); TOT PROT 5.9 g/dl (6.4-8.2)
[2023-11-13 11:29] LABS: MAGNESIUM 2.1 mg/dL (1.8-2.4)
== END 2023-11-13 11:09 | disposition home or self-care (01) | DRG 390 ==
LOC: FER 03:29 → FM/S 09:30
PROVIDERS: ADMIT Internal Medicine; ATTEND Nurse Practitioner Family
PROC: 0D9670Z Drainage of Stomach with Drainage Device, Via Natural or Artificial Opening (ICD-10-PCS; principal; 2023-11-10)
DX: K56.609 Unspecified intestinal obstruction, unspecified as to partial versus complete obstruction (principal); F41.9 Anxiety disorder, unspecified; E87.8 Other disorders of electrolyte and fluid balance, not elsewhere classified; F32.A Depression, unspecified; G47.00 Insomnia, unspecified; E78.5 Hyperlipidemia, unspecified
CPT/HCPCS: 36415; 71045-TC-FY; 74018-TC-FY; 74019-TC-FY; 74177-TC; 80053; 81003; 83735; 84100; 84484; 85025; 85027; 93005; 99285-25; J0131; Q9967

== ENCOUNTER 2024-08-31 02:22 | Inpatient (IN) | payer OTHER ==
[2024-08-31] MEDS: morphine CARPU-JECT 2 MG/1 ML DISP.SYRIN IVPUSH ONE ×2 (02:58→05:12)
[2024-08-31] MEDS: SODIUM CHLORIDE 1,000 ML IV ONE (02:59)
[2024-08-31 03:37] LABS: HEMATOCRIT 39.3 % (32.4-45.2); HEMOGLOBIN 13.3 GM/dL (10.7-15.3); MCH 30.9 pg (25.7-33.7); MCHC 33.9 g/dl (32.0-36.0); MEAN CELL VOLUME 91.2 fl (80-96); MEAN PLT VOLUME 9.7 fl (7.5-11.1); PLATELET COUNT 215 10^3/uL (134-434); RBC 4.31 M/mm3 (3.60-5.2); RDW 13.3 % (11.6-15.6); WHITE BLOOD COUNT 8.3 K/mm3 (4.0-10.0)
[2024-08-31 03:57] LABS: POTASSIUM 4.3 mmol/L (3.5-5.1)
[2024-08-31 04:01] LABS: BLOOD UREA NITROGEN 19.7 mg/dL (7-18); MAGNESIUM 2.2 mg/dL (1.8-2.4)
[2024-08-31 04:03] LABS: CREATININE 0.8 mg/dL (0.55-1.3)
[2024-08-31 04:04] LABS: PHOSPHOROUS 3.3 mg/dL (2.5-4.9)
[2024-08-31 04:06] LABS: BILIRUBIN,TOTAL 0.4 mg/dL (0.2-1); TOT PROT 7.3 g/dl (6.4-8.2)
[2024-08-31] MEDS: DEXTROSE 5%-0.45% SALINE 1,000 ML IV SCH (13:07)
[2024-08-31 16:20] VITALS: BMI 23.6
[2024-09-01] MEDS: ACETAMINOPHEN 1000 MG/100 ML BAG IVPB ONE ×2 (01:10→08:58)
[2024-09-01] MEDS: hydrOXYzine PAMOATE 25 MG CAPSULE (FP) PO ONE (06:01)
[2024-09-01 09:07] LABS: HEMATOCRIT 39.2 % (32.4-45.2); HEMOGLOBIN 12.8 GM/dL (10.7-15.3); LYMPH % 24.3 % (8-40); MCH 30.2 pg (25.7-33.7); MCHC 32.7 g/dl (32.0-36.0); MEAN CELL VOLUME 92.2 fl (80-96); MEAN PLT VOLUME 9.3 fl (7.5-11.1); MONO % 8.3 % (3.8-10.2); NEUT % 63.4 % (42.8-82.8); PLATELET COUNT 223 10^3/uL (134-434); RBC 4.25 M/mm3 (3.60-5.2); RDW 13.3 % (11.6-15.6); WHITE BLOOD COUNT 5.8 K/mm3 (4.0-10.0)
[2024-09-01 09:09] LABS: INR 0.95 (0.83-1.09); PROTHROMBIN TIME (PATIENT) 10.9 SEC (9.7-13.0)
[2024-09-01 09:12] LABS: ACTIVATED PTT 27.1 SECONDS (25.2-36.5)
[2024-09-01 09:25] LABS: POTASSIUM 4.6 mmol/L (3.5-5.1)
[2024-09-01 09:29] LABS: CALCIUM 8.8 mg/dL (8.5-10.1)
[2024-09-01 09:30] LABS: BLOOD UREA NITROGEN 6.3 mg/dL (7-18); MAGNESIUM 2.2 mg/dL (1.8-2.4)
[2024-09-01 09:33] LABS: CREATININE 0.6 mg/dL (0.55-1.3); PHOSPHOROUS 2.4 mg/dL (2.5-4.9)
[2024-09-01 10:46] VITALS: PULSE 78
[2024-09-01] MEDS: SODIUM PHOSPHATE - 15 MM in DEXTROSE 5%-WATER - 250 ML IVPB ONE (11:27)
[2024-09-01 14:41] VITALS: BP 137/81; RESP 18; TEMP 98.4
== END 2024-09-01 16:00 | disposition home or self-care (01) | DRG 390 ==
LOC: FER 02:22 → JERBED 15:48 → J8W 15:52
PROVIDERS: ADMIT Student in an Organized Health Care Education/Training Program; ATTEND Student in an Organized Health Care Education/Training Program
DX: K56.600 Partial intestinal obstruction, unspecified as to cause (principal); R10.9 Unspecified abdominal pain
CPT/HCPCS: 36415; 74018-TC-FY; 74021-TC-FY; 74177-TC; 80048; 80053; 81003; 82550; 83605; 83735; 84100; 84484; 85025; 85027; 85610; 85730; 86850; 86900; 86901; 93005; 99285-25; J0131; Q9967

== ENCOUNTER 2025-04-13 11:15 | Emergency (ER) | payer OTHER ==
[2025-04-13 11:25] VITALS: BP 178/77; PULSE 91; RESP 18; TEMP 97.9; BMI 23.2
[2025-04-13] MEDS ORDERED: ACETAMINOPHEN 500 MG TABLET (FP) ONE (12:13)
[2025-04-13] MEDS: ACETAMINOPHEN 500 MG TABLET (FP) PO ONE (12:14)
== END 2025-04-13 14:15 | disposition home or self-care (01) ==
LOC: FER 11:15
DX: S09.90XA Unspecified injury of head, initial encounter (principal); W01.10XA Fall on same level from slipping, tripping and stumbling with subsequent striking against unspecified object, initial encounter; Y93.73 Activity, racquet and hand sports
CPT/HCPCS: 70450-TC; 72125-TC; 72220-TC-FY; 99284-25